=== PATIENT | male | born 2000 | race Caucasian/White ===

== ENCOUNTER 2021-10-18 18:37 | Emergency (ER) | payer BC ==
[~2021-10-18] VITALS: Ht 175.3 cm; Wt 72.6 kg
[2021-10-18 18:44] VITALS: BP_SYST 117
[2021-10-18] MEDS ORDERED: ALBUTEROL SULFATE 0.083% 2.5 MG/3 ML VIAL.NEB INH ONE (18:45)
[2021-10-18] MEDS ORDERED: predniSONE 20 MG TABLET PO ONE (18:45)
--- NOTE | 2021-10-18 18:45 | NUR ---
Patient to ER bed 1 to gown for evaluation. Side rails up. Report given to Mary VAN.
--- NOTE | 2021-10-18 18:48 | NUR ---
TOSHIA Camilo at bedside examining patient.
--- NOTE | 2021-10-18 18:50 | NUR ---
Pt brought by self, A&Ox4 , pt presents to ER with SOB,Hx of asthma, skin pink and warm, cap refill <3,VSS, respirations even and unlabored.
--- NOTE | 2021-10-18 19:05 | NUR ---
RT at bedside
--- NOTE | 2021-10-18 19:25 | NUR ---
assumed care of pt from anna mcghee
--- NOTE | 2021-10-18 20:10 | NUR ---
pt feeling and looking much better. pt has no complainsts at this time. vss
[2021-10-18] MEDS ORDERED: LORATADINE 10 MG TABLET PO ONE (20:15)
[2021-10-18] MEDS ORDERED: PRED20TA PO (20:35)
[2021-10-18] MEDS ORDERED: ALBU2.5V7 INH (20:37)
[2021-10-18] MEDS ORDERED: CETI10CA PO (20:40)
[2021-10-18 20:49] VITALS: BP_SYST 138
--- NOTE | 2021-10-18 20:49 | NUR ---
Patient given written and verbal discharge instructions and verbalizes understanding. ER MD discussed with patient the results and treatment provided. Patient in stable condition. ID arm band removed. Rx of albuterol, zyrtec, prednisone given. Patient educated on pain management and to follow up with PMD. Pain Scale 0/10. Opportunity for questions provided and answered. Medication side effect fact sheet provided.
== END 2021-10-18 20:49 | disposition home or self-care (01) ==
LOC: SED 18:37
DX: J45.901 Unspecified asthma with (acute) exacerbation (principal); Z79.899 Other long term (current) drug therapy
CPT/HCPCS: 71045; 93005; 94640; 99283; J7512; J7613